=== PATIENT | male | born 1940 | race Caucasian/White ===

== ENCOUNTER → 2017-05-27 | Outpatient (CLI) | payer OTHER ==
[~2017-05-27] MED LIST: ALPRAZOLAM PO; ASPIRIN PO; AUGMENTIN PO; CATAFLAM50 MG PO; CENTRUM SILVER PO; KROGER PHARMACY; LISINOPRIL PO; NEXIUM PO; NIFEREX-150150 MG PO; TOPROL XL PO; VICODIN PO; VIT B-12 PO; VIT E PO; VITAMIN C PO; ZOCOR PO; ZYLOPRIM PO; [UNRECOGNIZED DRUG - REMARK]
--- NOTE | ~2017-05-27 | MR113 ---
[facility] A Service of [facility] & [facility] / [facility] RADIOLOGY TEXT RESULTS PATIENT: JUAN JOSE LARIOS LOCATION: [facility] : 44 UNIT #: [id number] AGE: [address]: Zeus Mcguire MD SEX: M ORDER DR: [id number] [address] [address] [id number] MR#: [id number] Acc #: [id number] NAME: JUAN JOSE LARIOS : 1940 SEX: M STUDY DATE/TIME: 05/27/2017 13:08 UNIT: [facility] ROOM: STUDY DESCRIPTION: MR Lumbar Wo Contrast Attending Physician: Zeus Mcguire M.D. Referring Physician: Zeus Mcguire M.D. Ordering Physician: Zeus Mcguire M.D. Primary Care Physician: Zeus Mcguire M.D. MRI CENTER REPORT This report is preliminary unless electronic signature is present. EXAM MRI of the lumbar spine without contrast, dated 05/27/2017. COMPARISON Plain films lumbar spine dated 12/19/2013. HISTORY Chronic low back pain for about 5 years. Bilateral lower extremity pain and weakness also. FINDINGS Multisequence, multiplanar imaging of the lumbar spine was obtained without contrast. Vertebral body heights are preserved. There is minimal 4 mm retrolisthesis of L5 with respect to L4. Degenerative disc signal loss is seen throughout the lumbar spine. There is fatty filum terminalis extending from the level of L2 down to the level of L5-S1. Its most prominent component is at the level of the inferior L2 measuring about 5 mm in greatest AP dimension. Given the size fibrolipoma is part of the differential consideration. Conus is not tender. Retroperitoneum, pre and paravertebral soft tissues are grossly unremarkable. L1-2: Mild degenerative disc signal loss but otherwise unremarkable. L2-3: Suspicious small right foraminal to extraforaminal tiny protrusion with minimal inferior right neural foraminal encroachment. Borderline-sized canal and mild bilateral facet changes are present. L3-4: Concentric disc bulge which is slightly asymmetrically prominent in bilateral foraminal to extraforaminal region suggestive of broad-based protrusions. Mild canal stenosis is seen with mild inferior bilateral neural foraminal encroachment. L4-5: Moderate disc bulge is seen with severe bilateral facet STS. [facility] A Service of [facility] RADIOLOGY TEXT RESULTS PATIENT: JUAN JOSE LARIOS LOCATION: [facility] : 44 UNIT #: [id number] AGE: [address]: Zeus Mcguire MD SEX: M ORDER DR: hypertrophic changes and joint fluid. Severe canal stenosis is seen with mild bilateral lateral recess stenosis and [id number] bilateral neural foraminal narrowing. L5-S1: Concentric disc bulge with small central protrusion. Mild right facet hypertrophic change and mild inferior bilateral neural foraminal encroachment is seen with borderline-sized canal. IMPRESSION 1. Degenerative changes are at multiple levels, worse at L4-5 with [id number] canal stenosis, particularly in the transverse dimension and bilateral neural foraminal narrowing along with severe bilateral facet hypertrophic changes with joint fluid. 2. There is fatty infiltration of the filum terminalis. 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 The cord and conus are terminating in L1 level without tethering. Dictated by... Jude Solorzano M.D. THIS IS AN ELECTRONICALLY VERIFIED REPORT Jude Solorzano M.D. at 06/02/2017 11:33 AM CPR/jelizabeth TD: 05/27/2017 21:27 JOB #: [id number] MRI CENTER REPORT Page 1 of 1
== END | disposition home or self-care (01) ==
LOC: SMRI 12:17
DX: M51.36 Other intervertebral disc degeneration, lumbar region (principal); M19.90 Unspecified osteoarthritis, unspecified site; M47.896 Other spondylosis, lumbar region; M48.06 Spinal stenosis, lumbar region; G95.89 Other specified diseases of spinal cord
CPT/HCPCS: 72148